=== PATIENT | female | born 1970 | race African-American/Black ===

== ENCOUNTER 2021-10-02 21:21 | Emergency (ER) | payer SELFPAY ==
[2021-10-02] MEDS ORDERED: Amlodipine 5 MG TAB ONE (23:30)
[2021-10-03] MEDS ORDERED: Acetaminophen 500 MG TAB ONE (00:33)
[2021-10-03 23:42] LABS: SARS-CoV-2 PCR by NAA Not Detected (NotDetected)
== END 2021-10-03 00:29 | disposition home or self-care (01) ==
LOC: CSHERS 21:21
DX: B34.9 Viral infection, unspecified (principal); I10 Essential (primary) hypertension; Z20.822 Contact with and (suspected) exposure to COVID-19
CPT/HCPCS: 99284; U0003; U0005